=== PATIENT | female | born 1960 | race Two or more races ===

== ENCOUNTER 2020-10-30 12:28 | Emergency (ER) | payer OTHER ==
[~2020-10-30] VITALS: Ht 167.6 cm; Wt 56.7 kg
--- NOTE | 2020-10-30 12:41 | NUR ---
THE PATIENT PRESENTED TO ER WITH C/O UPPER BACK PAIN W/ INCREASING NUMBNESS ON L ARM SINCE THURSDAY, +NAUSEA. RATES PAIN 12/22. ATTACHED TO THE MONITOR. WILL CONTINUE TO MONITOR THE PATIENT.
[2020-10-30 14:02] VITALS: BP 139/77
--- NOTE | 2020-10-30 14:02 | NUR ---
Patient eloped from facility. Dr Mora notified.
== END 2020-10-30 14:03 | disposition left against medical advice (07) ==
LOC: ER 12:28
DX: M54.6 Pain in thoracic spine (principal); Z87.891 Personal history of nicotine dependence
CPT/HCPCS: 71045-TC